=== PATIENT | female | born 2000 | race Caucasian/White ===

== ENCOUNTER → 2020-11-26 | Outpatient (REF) | payer OTHER ==
[2020-11-27 07:21] LABS: CHLAMYDIA DNA AMPLIFICATION NEGATIVE (NEGATIVE); GC DNA AMPLIFICATION NEGATIVE (NEGATIVE)
== END ==
LOC: M WUC 19:18
PROVIDERS: ATTEND Physician Assistant
DX: R11.0 Nausea (principal)

== ENCOUNTER 2021-05-11 17:25 | Inpatient (IN) | payer BC, OTHER ==
[~2021-05-11] VITALS: Ht 165.1 cm; Wt 56.4 kg
[2021-05-11 19:12] LABS: HEMATOCRIT 45.9 % (36.0-47.0); HEMOGLOBIN 15.2 g/dl (12.0-15.5); MEAN CORPUSCULAR HEMOGLOBIN 28.8 pg (27.0-33.0); MEAN CORPUSCULAR HGB CONC 33.1 g/dl (32.0-36.5); MEAN CORPUSCULAR VOLUME 86.9 fl (80.0-96.0); PLATELET COUNT, AUTOMATED 404 10^3/uL (150-450); RED BLOOD COUNT 5.28 10^6/uL (4.00-5.40); WHITE BLOOD COUNT 10.3 10^3/uL (4.0-10.0)
[2021-05-11 19:35] LABS: AMPHETAMINES LEVEL URINE NEGATIVE (NEGATIVE); BARBITURATES URINE NEGATIVE (NEGATIVE); BENZODIAZEPINES URINE NEGATIVE (NEGATIVE); CANNABINOIDS URINE POSITIVE (NEGATIVE); COCAINE METABOLITE URINE NEGATIVE (NEGATIVE); METHADONE URINE NEGATIVE (NEGATIVE); OPIATES URINE NEGATIVE (NEGATIVE); PHENCYCLIDINE URINE NEGATIVE (NEGATIVE)
[2021-05-11 19:41] LABS: HCG, SERUM QUALITATIVE NEGATIVE (NEGATIVE)
[2021-05-11 19:46] LABS: ACETAMINOPHEN LEVEL < 2.0 UG/ML (10.0-30.0); ALT/SGPT 18 U/L (12-78); BILIRUBIN,DIRECT 0.5 MG/DL (0.0-0.2); BILIRUBIN,TOTAL 2.4 MG/DL (0.2-1.0); BLOOD UREA NITROGEN 9 MG/DL (7-18); CALCIUM LEVEL 10.1 MG/DL (8.5-10.1); CARBON DIOXIDE LEVEL 28 MEQ/L (21-32); CHLORIDE LEVEL 107 MEQ/L (98-107); CREATININE FOR GFR 0.93 MG/DL (0.55-1.30); ETHYL ALCOHOL (ETHANOL) < 0.003 % (0.000-0.010); GLOMERULAR FILTRATION RATE > 60.0 (>60); GLUCOSE, FASTING 98 MG/DL (70-100); POTASSIUM SERUM 4.2 MEQ/L (3.5-5.1); SALICYLATE LEVEL < 1.7 MG/DL (5.0-30.0); SODIUM LEVEL 142 MEQ/L (136-145); TOTAL PROTEIN 8.2 GM/DL (6.4-8.2)
[2021-05-11] MEDS ORDERED: OMEP40CA4 PO (23:10)
[2021-05-11] MEDS ORDERED: ACETAMINOPHEN TAB 650MG DOSE (2X325MG) PO PRN (23:30)
[2021-05-11] MEDS ORDERED: MAALOX 30 ML SUSP *UDC PO PRN (23:30)
[2021-05-11] MEDS ORDERED: traZODone 50 MG TAB PO PRN (23:30)
[2021-05-11] MEDS ORDERED: MOM 30ML SUSPENSION UDC PO PRN (23:30)
[2021-05-11] MEDS ORDERED: OLANZapine ORAL DISINTEGRATING TAB 5MG PO PRN (23:30)
[2021-05-11 23:50] LABS: RSV AMPLIFICATION NEGATIVE (NEGATIVE)
[2021-05-12 02:23] VITALS: BP 127/86
[2021-05-12] MEDS ORDERED: OMEPRAZOLE 20 MG CAP PO SCH (09:00)
[2021-05-12] MEDS ORDERED: SERTRALINE HCL 50 MG TAB PO SCH (09:00)
[2021-05-12] MEDS ORDERED: NICOTINE 7 MG/24 HR TRANSDERMAL TD ONE (10:00)
--- NOTE | 2021-05-12 11:01 | MHHPEPDOC ---
General Date Of Admission: May 11, 2021 Legal Status: 9.39 Chief Complaint " I was just upset because my boyfriend dumped me. History of Present Illness HISTORY OF THE PRESENT ILLNESS: Patient is a 20 -year-old , female, who no previous psychiatric history brought to the emergency room by police after she called the crisis line and talked to the counselor and reported that she is feeling very depressed and upset and had vague thoughts of suicide but has no intention of doing it. Patient states that she is been feeling very upset and depressed and largely after her boyfriend of 8 months told her that he does not want to see her anymore last . She stated that she was very emotional and has been seeking counseling service so she called the crisis service hotline and was talking to a counselor and she expressed to her depressed mood feeling so upset that she was given thinking about jumping into a river but had no intent or plan to care aside. She stated that the counselor overreacted and called the residential lawn specialist's department and they came to work at [facility] and took her out of the work and brought to the emergency room. Patient is very upset that they came to a work site and stated that she was just very emotional at that time when she talked to the counselor. She denies any intent plan of suicide states that she was just miserable and wanted to talk to somebody. She denies any history of psychosis denies any substance abuse issues and denies any history of suicidal attempt plan or intent. She is anxious to be discharged so she will not lose her job and is willing to accept antidepressant medications and continue counseling but is very demanding of discharge. . Psychiatric Review of Systems Depression (2 or more weeks): depressed mood, feelings of worthlesness, suicidal thoughts, other (Denies any suicidal plan or intent and stated it was a just emotional statement) Juanita (4 or more days of): denies Psychosis: denies PTSD: denies Anxiety: situational anxiety, stressor related anxiety Past Psychiatric History Previous Psychiatric Diagnosis: . Anxiety Previous Psychiatric Admissions: . No inpatient treatment Suicide Attempts: . No suicidal attempt Psychiatric Follow-up: . He is trying to get outpatient counseling Psychiatric medications: . Willing to try antidepressant medicine Past Medical History Medical Problems No medical issues Head Injury: No Seizures: No Hospitalizations: No Surgeries: No Family Medical/Psychiatric HX Medical Problems Noncontributory Psychiatric Disorders: No Addiction: No Suicide Attemps/Completions: No Addiction History denies Social History Childhood: . Abuse/Trauma:. Current Living Situation: . Education: . Employment: . Social Support: . Legal: . Marital: . Mental Status Examination General Appearance: ds/not appear stated age A-FIB/CHADSVASC A-FIB History Current/History of A-Fib/PAF?: No Current PO Anticoag Therapy: No Age/Risk Factor Scoring CHADSVASC: CHADSVASC Response (Comments) Value Gender Risk Factor Female 1 Hx of CHF No 0 Hx of HTN No 0 Hx of Stroke/TIA/or VTE No 0 Hx of Diabetes No 0 Hx of Vascular Disease No 0 Total 1 Treatment Treatment ordered: NONE Assessment Moderate depression exacerbated with the recent break-up with her boyfriend. Patient does not appear to be acutely suicidal and is willing to accept outpatient treatment so we will prescribe Zoloft 50 mg daily and discharge to follow-up with outpatient Initial Treatment Plan 1. Patient was admitted on a [9.39] status. 2. Complete history was obtained. 3. With patients permission, family will be contacted and database will be expanded. 4. Patients medication regimen will be reviewed and changed accordingly. 5. Patient will be provided with protected environment. 6. Patient will be treated with individual, group, and milieu therapies. 7. Patient will receive supportive psych-education. 8. Discharge planning will commence immediately. 9. Outpatient follow-up treatment will be strongly recommended. 10. The initial treatment plan will focus initially on: * Depression. * Risk for suicide. ESTIMATED LENGTH OF STAY: Discharged today TIME SPENT COUNSELING AND COORDINATING INITIAL CARE: 45 minutes. Tobacco Cessation Screen If Patient is a Smoker Smoker Tobacco Cessation Tx Ordered?: Yes N/A-No Antipsychotics Vital Signs Vital Signs Date Time Temp Pulse Resp B/P (MAP) Pulse Ox O2 Delivery O2 Flow Rate FiO2 05/12/21 09:01 Room Air 05/12/21 02:23 98.0 54 18 127/86 (100) 100 Laboratory Data 24H Labs Laboratory Tests 2 05/11/21 18:46: Nucleated Red Blood Cells % (auto) 0.0, Anion Gap 7L, Glomerular Filtration Rate > 60.0, Calcium Level 10.1, Total Bilirubin 2.4H, Direct Bilirubin 0.5H, Aspartate Amino Transf (AST/SGOT) 6L, Alanine Aminotransferase (ALT/SGPT) 18, Alkaline Phosphatase 55, Total Protein 8.2, Albumin 5.0, Albumin/Globulin Ratio 1.6, Thyroid Stimulating Hormone (TSH) 1.170, Human Chorionic Gonadotropin, Qual NEGATIVE, Salicylates Level < 1.7L, Urine Opiates Screen NEGATIVE, Urine Methadone Screen NEGATIVE, Acetaminophen Level < 2.0L, Urine Barbiturates Screen NEGATIVE, Urine Phencyclidine Screen NEGATIVE, Urine Amphetamines Screen NEGATIVE, Urine Benzodiazepines Screen NEGATIVE, Urine Cocaine Metabolite Screen NEGATIVE, Urine Cannabinoids Screen POSITIVEH, Ethyl Alcohol Level < 0.003 05/11/21 23:04: Coronavirus (COVID-19)(PCR) NEGATIVE, Influenza Type A (RT-PCR) NEGATIVE, Influenza Type B (RT-PCR) NEGATIVE, Respiratory Syncytial Virus (PCR) NEGATIVE CBC/BMP Laboratory Tests 05/11/21 18:46 Medications Scheduled Omeprazole (Omeprazole) 40 Mg Capsule.dr, 40 MG PO DAILY, (Reported) Allergies Coded Allergies: measles, mumps, and rubella vaccine (Verified Allergy, Intermediate, HIVES, 05/11/21) SEASONAL ALLERGIES (Verified Allergy, Unknown, 05/11/21) SHREYA COELLO M.D. May 12, 2021 11:01
[2021-05-12] MEDS ORDERED: SERT50TA29 PO (11:04)
--- NOTE | 2021-05-14 11:21 | MHDSPDOC ---
[facility] Discharge Summary Discharge Summary DATE OF ADMISSION: May 11, 2021 at 17:26 DATE OF DISCHARGE: May 12, 2021 at 12:10 DISCHARGE DIAGNOSES: 1.. Adjustment disorder with mixed emotion 2.. REASON FOR ADMISSION: 20-year-old female with no prior psychiatric history brought to emergency room by police after she told the crisis counselor that she was thinking about committing suicide. Patient stated that she has been feeling lonely upset and depressed because her boyfriend recently told her that he is leaving her. She stated that she has been trying to get a mental health counseling appointment but has not been able to secure 1 so she called the crisis service to talk and became very emotional and made statement alluding that she might kill her self by crashing her car. She states she is stated that the counselor overreacted and called the police to pick her up from her work and brought to emergency room and admitted on 939 status. She strongly denies any suicidal plan or intent and is very upset that she may lose her job because of this and denies any serious suicidal thoughts and demanding discharge. CONSULTANTS INVOLVED: TREATMENT AND PROGRESS ON THE UNIT : She is asking for possible antidepressant medication and an appointment for outpatient counseling but is very anxious to be discharged so she can keep her job and is very demanding. She does not appear to be psychotic and she is in very good control and she has a housing and her job and is willing to continue outpatient treatment. She is clearly not psychotic has no history of suicidal attempt and does not appear to be acutely suicidal and does not admit to listing criteria for 939 retention.. HOSPITAL COURSE: The patient does not appear to be severely depressed or suicidal so she will be discharged with outpatient appointment and the prescription for Zoloft 50 mg daily for 7 days with 3 refills DISCHARGE ASSESSMENT: Stable not suicidal MENTAL STATUS EXAMINATION ON DISCHARGE: Patient is a 20-year old female, who is a little tearful but in good control. Speech is pressured but rational and coherent. Language skills are good. Thought processes including: Relevant. Thought content: No psychosis and denies any suicidal plan. Abstract reasoning, and computation: Fair. Description of associations: Well organized. Description of abnormal or psychotic thoughts: None. Judgment: Fair. Insight: Fair. Orientation to oriented. Recent and remote memory: Unimpaired. Attention span and concentration: Fair. Language:. Fund of knowledge: Average. Mood: Mildly depressed but appropriate. Affect: Good range and appropriate. MEDICATIONS ON DISCHARGE: -For. Zoloft 50 mg daily for 7 days with 3 refills -For. -For. PLAN/FOLLOWUP ARRANGEMENTS: Patient has an appointment to see a counselor. The amount of time spent in the coordination of care for this patient was approximately 35 minutes. ETOH/Disorder Med Rx ETOH/DRUG DISORDER RX: N/A Vital Signs/I&Os Vital Signs Date Time Temp Pulse Resp B/P (MAP) Pulse Ox O2 Delivery O2 Flow Rate FiO2 05/12/21 09:01 Room Air 05/12/21 02:23 98.0 54 18 127/86 (100) 100 Medications Scheduled Omeprazole (Omeprazole) 40 Mg Capsule.dr, 40 MG PO DAILY, (Reported) Sertraline HCl (Sertraline HCl) 50 Mg Tablet, 50 MG PO DAILY for depression for 7 Days, #7 Allergies Coded Allergies: measles, mumps, and rubella vaccine (Verified Allergy, Intermediate, HIVES, 05/11/21) SEASONAL ALLERGIES (Verified Allergy, Unknown, 05/11/21) SHREYA COELLO M.D. May 14, 2021 11:21
== END 2021-05-12 12:10 | disposition home or self-care (01) | DRG 885 ==
LOC: M ED 17:25 → M ED INP 17:26 → M PSY 05-12 01:29
PROVIDERS: ADMIT Psychiatry & Neurology Psychiatry; ATTEND Psychiatry & Neurology Psychiatry
DX: F33.1 Major depressive disorder, recurrent, moderate (principal); F17.210 Nicotine dependence, cigarettes, uncomplicated; Z20.822 Contact with and (suspected) exposure to COVID-19; Z79.899 Other long term (current) drug therapy; Z88.7 Allergy status to serum and vaccine; Z63.0 Problems in relationship with spouse or partner